=== PATIENT | male | born 1980 | race Caucasian/White ===

== ENCOUNTER 2023-04-18 02:45 | Emergency (ER) | payer MEDICAID ==
[~2023-04-18] VITALS: Ht 172.7 cm; Wt 74.8 kg
[2023-04-18 02:47] VITALS: BP 144/98; PULSE 91; RESP 20; TEMP 96.3; O2SAT 98
[2023-04-18 02:53] VITALS: O2SAT 98
[2023-04-18 04:02] LABS: FLU A ANTIGEN negative (NEGATIVE); FLU B ANTIGEN NEGATIVE (NEGATIVE)
[2023-04-18] MEDS ORDERED: ROB PO (05:30)
[2023-04-18] MEDS ORDERED: ALBU0.0912 IH (05:30)
== END 2023-04-18 05:55 | disposition home or self-care (01) ==
LOC: MED 02:45
DX: J20.9 Acute bronchitis, unspecified (principal); Z20.822 Contact with and (suspected) exposure to COVID-19; Z88.0 Allergy status to penicillin; Z79.899 Other long term (current) drug therapy
CPT/HCPCS: 71045; 87426; 87804; 99284; Q0092